=== PATIENT | female | born 1950 | race Caucasian/White ===

== ENCOUNTER → 2024-02-09 10:52 | Outpatient (BNVA) | payer MEDICARE, SELFPAY | PROVIDERS: Visit Provider Nurse Practitioner Family | DX: L21.8 Other seborrheic dermatitis (principal); L98.1 Factitial dermatitis; T22.131A Burn of first degree of right upper arm, initial encounter; X58.XXXA Exposure to other specified factors, initial encounter; Z85.828 Personal history of other malignant neoplasm of skin | CPT/HCPCS: 99214 ==

== ENCOUNTER → 2024-05-29 09:06 | Outpatient (BNVA) | payer MEDICARE, SELFPAY | PROVIDERS: Visit Provider Nurse Practitioner Family | DX: L21.8 Other seborrheic dermatitis (principal); L98.1 Factitial dermatitis; D69.2 Other nonthrombocytopenic purpura; L82.1 Other seborrheic keratosis; L73.8 Other specified follicular disorders; Z08 Encounter for follow-up examination after completed treatment for malignant neoplasm; Z85.828 Personal history of other malignant neoplasm of skin; L57.0 Actinic keratosis | CPT/HCPCS: 17000; 99213 ==

== ENCOUNTER → 2025-01-03 13:27 | Outpatient (BNVA) | payer MEDICARE, SELFPAY | PROVIDERS: Visit Provider Nurse Practitioner Family | DX: L21.8 Other seborrheic dermatitis (principal); L98.1 Factitial dermatitis; D69.2 Other nonthrombocytopenic purpura; L82.1 Other seborrheic keratosis; L73.8 Other specified follicular disorders; Z08 Encounter for follow-up examination after completed treatment for malignant neoplasm; Z85.828 Personal history of other malignant neoplasm of skin; L57.0 Actinic keratosis | CPT/HCPCS: 17000; 99214 ==

== ENCOUNTER 2025-02-04 08:46 | Emergency (ER) | payer MEDICARE, SELFPAY ==
[2025-02-04 08:53] VITALS: BP 142/86; PULSE 66; RESP 16; TEMP 36.6; O2SAT 98; BMI 32.6
--- OUTSIDE RECORDS SUMMARY | 2025-02-04 08:55 | XMS_ITS | Encounter Summary ---
Author Organization [facility] Address [address] [place] [address] Care Team Providers Care Decommissioning Well Site Manager Name Role Phone Jackson Mora DO Primary Care Provider [phone] Reason for Visit * Reason Onset Date Comments Natacha Registered Nurse Surgical Services 02/04/2025 Encounter Details Date Type Department Care Team (Late st Contact Info) Description 02/04/2025 Nurse Triage [facility] [address] [place] [address] Wendy Metz RN Social History Tobacco Use Types Packs/Day Years Used Date Smoking Tobacco: Former Cigarettes Passive Smoke Exposure: Past Smokeless Tobacco: Never Alcohol Use Standard Drinks/Week Comments Not Currently 0 (1 standard drink = 0.6 oz pur e alcohol) Comments No Sex and Gender Information Value Date Recorded Sex Assigned at Not on file Legal Sex Female 6:34 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 She has a history of allergy to bee stings, with previous reactions including localized swelling and discoloration lasting about one week. At present, she denies shortness of breath and swelling of lips, tongue,or throat. Pt states area in now red and slightly swollen. She is inquiring whether she should go to the emergency department for treatment. Pt does not have Zyrtec on hand. Plan: Dr. Aguilar consulted, UC advised. Pt agreeable with plan Note routed to primary care office pool. Visit was completed by phone unless otherwise noted with video/screen capture within the note. Wendy Metz RN [facility] documented in this encounter Plan of Treatment Upcoming Encounters Date Type Department Care Team (Late st Contact Info) Description 03/28/2025 9:40 AM CDT Office Visit [facility] [address] [place] [phone] Danita Vides, LAB ENGINEER [address] [place] [phone] documented as of this encounter Visit Diagnoses Not on filedocumented in this encounter Care Teams Decommissioning Well Site Manager Relationship Specialty Start Date End Date Jackson Mora DO [address] [place] [phone] PCP - General Family Practice 12/15/21 documented as of this encounter
--- OUTSIDE RECORDS SUMMARY | 2025-02-04 08:55 | XMS_ITS | Encounter Summary ---
Author Organization [facility] Address [address] [place] [address] Care Team Providers Care Lumber Puller Name Role Phone Unavailable Primary Care Provider Unavailabl e Encounter Details Date Type Department Care Team (Latest Contact Info) Description 04/21/1998 Outpatient Historical [facility] Family Medicine- [address] [address] Willy Soto MD [address] [address] Cellulitis and abscess of leg, except foot (Primary Dx); Attention to dressings and sutures Social History Tobacco Use Types Packs/Day Years Used Date Smoking Tobacco: Never Assessed Comments Unknown Sex and Gender Information Value Date Recorded Sex Assigned at Not on file Legal Sex Female 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
--- OUTSIDE RECORDS SUMMARY | 2025-02-04 08:55 | XMS_ITS | Encounter Summary ---
Author Organization [facility] Address [address] [place] [address] Care Team Providers Care Supply Chain Vice President Name Role Phone Unavailable Primary Care Provider Unavailabl e Encounter Details Date Type Department Care Team (Latest Contact Info) Description 06/25/1999 Outpatient Historical [facility] Family Medicine- [address] [address] Fortino Mora MD [address] [place] [address] Swelling, mass, or lump in head and neck (Primary Dx) Social History Tobacco Use Types Packs/Day Years Used Date Smoking Tobacco: Never Assessed Comments Unknown Sex and Gender Information Value Date Recorded Sex Assigned at Not on file Legal Sex Female 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
--- OUTSIDE RECORDS SUMMARY | 2025-02-04 08:55 | XMS_ITS | Encounter Summary ---
Author Organization [facility] Address [address] [place] [address] Care Team Providers Care Senior Fire Protection Engineer Name Role Phone Unavailable Primary Care Provider Unavailabl e Encounter Details Date Type Department Care Team (Latest Contact Info) Description 05/09/1998 Outpatient Historical [facility] Family Medicine- [address] [address] Willy Soto MD [address] [address] Lipoma of unspecified site (Primary Dx); Sebaceous cyst Social History Tobacco Use Types Packs/Day Years Used Date Smoking Tobacco: Never Assessed Comments Unknown Sex and Gender Information Value Date Recorded Sex Assigned at Not on file Legal Sex Female 3:56 AM CHIEF OF SERVICE Gender Identity Not on file Sexual Orientation Not on file documented as of this encounter Plan of Treatment Not on file documented as of this encounter Visit Diagnoses Diagnosis Lipoma of unspecified site- Primary Sebaceous cyst documented in this encounter
--- OUTSIDE RECORDS SUMMARY | 2025-02-04 08:55 | XMS_ITS | Encounter Summary ---
Author Organization [facility] Address [address] [place] [address] Care Team Providers Care Hand Trimmer Name Role Phone Unavailable Primary Care Provider Unavailabl e Encounter Details Date Type Department Care Team (Latest Contact Info) Description 03/31/2001 Outpatient Historical [facility] Family Medicine- [address] [address] Willy Soto MD [address] [address] Need vaccination-viral disease (Primary Dx) Social History Tobacco Use Types Packs/Day Years Used Date Smoking Tobacco: Never Assessed Comments Unknown Sex and Gender Information Value Date Recorded Sex Assigned at Not on file Legal Sex Female 3:56 AM CUSTOMER FACILITIES SUPERVISOR Gender Identity Not on file Sexual Orientation Not on file documented as of this encounter Plan of Treatment Not on file documented as of this encounter Visit Diagnoses Diagnosis Need vaccination-viral disease- Primary Need for prophylactic vaccination and inoculation against other viral diseases documented in this encounter
--- OUTSIDE RECORDS SUMMARY | 2025-02-04 08:55 | XMS_ITS | Encounter Summary ---
Author Organization [facility] Address [address] [place] [address] Care Team Providers Care Director Of Online Education Name Role Phone Unavailable Primary Care Provider Unavailabl e Encounter Details Date Type Department Care Team (Latest Contact Info) Description 06/28/2000 Outpatient Historical [facility] Medicine- [address] [address] Fortino Mora MD [address] [place] [address] Type II or unspecified type diabetes mellitus without mention of complication, not stated as uncontrolled (Primary Dx); Pure hypercholesterolem; Unspecified endocrine disorder Social History Tobacco Use Types Packs/Day Years Used Date Smoking Tobacco: Never Assessed Comments Unknown Sex and Gender Information Value Date Recorded Sex Assigned at Not on file Legal Sex Female 3:56 AM GLASS BULB SILVERER Gender Identity Not on file Sexual Orientation Not on file documented as of this encounter Plan of Treatment Not on file documented as of this encounter Visit Diagnoses Diagnosis Type II or unspecified type diabetes mellitus without mention of complication, not stated as uncontrolled- Primary Pure hypercholesterolem Pure hypercholesterolemia Unspecified endocrine disorder documented in this encounter
--- OUTSIDE RECORDS SUMMARY | 2025-02-04 08:55 | XMS_ITS | Encounter Summary ---
Author Organization [facility] Address [address] [place] [address] Care Team Providers Care Professional Fighter Name Role Phone Unavailable Primary Care Provider Unavailabl e Encounter Details Date Type Department Care Team (Latest Contact Info) Description 10/02/1999 Outpatient Historical [facility] Family Medicine- [address] [address] Willy Soto MD [address] [address] Gynecologic examination (Primary Dx); Urinary tract infection, site not specified Social History Tobacco Use Types Packs/Day Years Used Date Smoking Tobacco: Never Assessed Comments Unknown Sex and Gender Information Value Date Recorded Sex Assigned at Not on file Legal Sex Female 3:56 AM PHARMACIST CRITICAL CARE Gender Identity Not on file Sexual Orientation Not on file documented as of this encounter Plan of Treatment Not on file documented as of this encounter Visit Diagnoses Diagnosis Gynecologic examination- Primary Gynecological examination Urinary tract infection, site not specified documented in this encounter
--- OUTSIDE RECORDS SUMMARY | 2025-02-04 08:55 | XMS_ITS | Encounter Summary ---
Author Organization [facility] Address [address] [place] [address] Care Team Providers Care Engine Assembly Supervisor Name Role Phone Unavailable Primary Care Provider Unavailabl e Encounter Details Date Type Department Care Team (Late st Contact Info) Description 04/16/1998 Outpatient Historical [facility] Medicine- [address] [address] Social History Tobacco Use Types Packs/Day Years Used Date Smoking Tobacco: Never Assessed Comments Unknown Sex and Gender Information Value Date Recorded Sex Assigned at Not on file Legal Sex Female 3:56 AM MANGANESE BREAKER Gender Identity Not on file Sexual Orientation Not on file documented as of this encounter Plan of Treatment Not on file documented as of this encounter Visit Diagnoses Not on filedocumented in this encounter
--- OUTSIDE RECORDS SUMMARY | 2025-02-04 08:55 | XMS_ITS | Encounter Summary ---
Author Organization [facility] Address [address] [place] [address] Care Team Providers Care Pickle Cutter Name Role Phone Unavailable Primary Care Provider Unavailabl e Encounter Details Date Type Department Care Team (Latest Contact Info) Description 06/06/1998 Outpatient Historical [facility] Family Medicine- [address] [address] Willy Soto MD [address] [address] Attention to dressings and sutures (Primary Dx); Type II or unspecified type diabetes mellitus without mention of complication, not stated as uncontrolled Social History Tobacco Use Types Packs/Day Years Used Date Smoking Tobacco: Never Assessed Comments Unknown Sex and Gender Information Value Date Recorded Sex Assigned at Not on file Legal Sex Female 3:56 AM HOME ENERGY CONSULTANT SUPERVISOR Gender Identity Not on file Sexual Orientation Not on file documented as of this encounter Plan of Treatment Not on file documented as of this encounter Visit Diagnoses Diagnosis Attention to dressings and sutures- Primary Type II or unspecified type diabetes mellitus without mention of complication, not stated as uncontrolled documented in this encounter
--- OUTSIDE RECORDS SUMMARY | 2025-02-04 08:55 | XMS_ITS | Clinical Summary ---
Author Organization [facility] Address [address] [address] Care Team Providers Care Chief Of Staff Name Role Phone Jackson Mora DO Primary Care Provider [phone] Allergies Active Allergy Reactions Criticality Noted Date Comments Cefazolin Unknown 12/15/2021 Codeine Itching Low 11/04/2022 Metformin Nausea and Vomiting Low 12/15/2021 Peanut Muscle Pain Low 12/15/2021 Zoledronic Dqzu-Hbpjwmnm-Xyvrz Other (See Comments) 12/15/2021 unknown Medications Farxiga 10 mg Tablet Take 10 mg by mouth daily. 12/02/19 22 Active furosemide (LASIX) 20 mg tablet Take 20 mg by mouth daily. 09/16/19 22 Active isosorbide mononitrate (IMDUR) 60 mg Extended Release 24 hour tablet Take 60 mg by mouth daily in the morning. 12/01/19 22 Active metoprolol tartrate (LOPRESSOR) 25 mg tablet Take 25 mg by mouth 2 times daily. 12/05/19 22 Active simvastatin (ZOCOR) 10 mg tablet Take 10 mg by mouth daily. 12/05/19 22 Active Januvia 100 mg Tablet Take 100 mg by mouth daily. 12/12/19 22 Active ferrous sulfate 325 mg (65 mg iron) tablet Take 325 mg by mouth daily. Active CHOLECALCIFEROL, VITAMIN D3, ORAL Take 1,000 Int'l Units/kg/min by mouth. Active omega 8-san-dmu-fish oil 1,000 mg (120 mg-180 mg) capsule Take by mouth daily. Active montelukast (SINGULAIR) 10 mg tablet Take 1 Tablet (10 mg) by mouth daily at bedtime. 90 Tablet 3 09/21/19 23 Active mupirocin (BACTROBAN) 2% Ointment Apply to affected area daily. 30 Gram 1 11/05/19 23 Active omeprazole (PriLOSEC) 20 mg Capsule, Delayed Release(E.C.) Take 1 Capsule by mouth daily. 08/25/19 24 Active Eliquis 5 mg tablet Take 1 Tablet by mouth 2 times daily. 08/22/19 24 Active naproxen sodium (ALEVE) 220 mg Tablet Take 220 mg by mouth every 12 hours as needed for Pain, Moderate. Active clobetasoL (TEMOVATE) 0.05 % Solution by See Admin Instructions route. 08/23/19 25 Active dilTIAZem (CARDIZEM CD, CARTIA XT) 180 mg Controlled Delivery 24 hour capsule Take 1 Capsule by mouth daily. 07/04/19 25 Active ketoconazole (NIZORAL) 2 % Shampoo Apply to affected area daily. 08/03/19 25 Active nitroglycerin (NITROSTAT) 0.4 mg Tablet, Sublingual Place 0.4 mg under tongue every 5 minutes as needed. 09/14/19 25 Active DULoxetine (CYMBALTA) 60 mg Capsule, Delayed Release(E.C.)Ind ications:Chronic bilateral thoracic back pain Take 1 capsule by mouth once daily 90 Capsule 1 10/02/19 25 Active OneTouch Verio test strips StripIndications :Type 2 diabetes mellitus without complication, without long-term current use of insulin ([facility]) USE 1 STRIP TO CHECK GLUCOSE TWICE DAILY 100 Each 3 11/29/19 25 Active dofetilide (TIKOSYN) 500 mcg capsule Take 1 Capsule by mouth 2 times daily. 12/09/19 25 Active potassium CHLORIDE (K-DUR,KLOR-CON M20) 20 mEq Extended Release tablet Take 1 Tablet by mouth 2 times daily. 10/03/19 25 Active alendronate (FOSAMAX) 70 mg tabletIndication s:Age-related osteoporosis without current pathological fracture Take 1 Tablet (70 mg) by mouth every 7 days. empty stomach before other meds,with 8oz of water, stay upright 30 min 4 Tablet 1 02/01/20 25 Active alendronate (FOSAMAX) 70 mg tablet TAKE 1 TABLET BY MOUTH EVERY 7 DAYS ON AN EMPTY STOMACH BEFORE OTHER MEDS WITH 8 OUNCES OF WATER. STAY UPRIGHT FOR 30 MINUTES 4 Tablet 1 12/12/19 25 025 Discontin ued(Reord er) Active Problems Problem Noted Date Diagnosed Date H/O peanut allergy 12/02/2023 Hx of nonmelanoma skin cancer 12/02/2023 Status post placement of cardiac pacemaker 12/01 Type 2 diabetes mellitus wit hojuan m complication, without long-term current use of insulin 09/02/2023 Age-related cognitive decline 04/18/2023 Obesity (BMI 30.0-34.9) 11/05/2022 Sick sinus syndrome 11/04/2022 Right bundle branch block 11/04/2022 Primary hypertension 11/04/2022 Primary hyperparathyroidism 11/04/2022 Presence of cardiac pacemaker 11/04/2022 Orthostatic hypotension 11/04/2022 Obesity 11/04/2022 Multinodular goiter 11/04/2022 Mixed hyperlipidemia 11/04/2022 Dyspnea on exertion 11/04/2022 Deformity of foot 11/04/2022 Complete atrioventricular block 11/04/2022 Chronic insomnia 11/04/2022 Chronic cough 11/04/2022 Chronic pain of left knee 11/04/2022 Hx of gastric bypass 11/04/2022 Arthritis 11/04/2022 S/P patch closure of atrial septal defect 2022 Age-related osteoporosis wit hout current pathological fracture 12/15/2021 Kyphosis 12/15/2021 Onychomycosis of multiple to enails with type 2 diabetes mellitus 12/15/2021 Chronic bilateral thoracic back pain 12/15/2021 Chronic systolic congestive heart failure 2021 S/P placement of cardiac pacemaker 12/15/2021 Gastroesophageal reflux disease 12/15/2021 Encounters Date Type Department Care Team Description 02/04/2025 Nurse Triage [facility] [phone] [place] [id number] Wendy Metz, LAURI 01/31/2025 Refill [facility] [address] [address] Jackson Mora DO Age-related osteoporosis without current pathological fracture (Primary Dx) 01/20/2025 Results Follow-Up [facility] [address] [place] [address] Jackson Mora DO XR CHEST PA AND LATERAL 2 VW 01/11/2025 9:30 AM CDT Clinical Support [address] [address] Acute cough (Primary Dx) 01/11/2025 9:00 AM CDT Ancillary Procedure [address] [address] Jackson Mora DO Acute cough 01/08/2025 External Device Data STL ABSTRACTION Provider, Abstract 01/02/2025 External Device Data STL ABSTRACTION Provider, Abstract 01/01/2025 External Device Data [facility] ABSTRACTION Provider, Abstract 12/27/2024 1:40 PM CDT Office Visit [address] [address] Jackson Mora DO Chronic systolic congestive heart failure (CMS/HCC) (Primary Dx); Frail elderly; Complete atrioventricular block (CMS/HCC); Sick sinus syndrome (CMS/HCC); Type 2 diabetes mellitus without complication, without long-term current use of insulin (CMS/HCC); Obesity (BMI 30.0-34.9); Age-related osteoporosis without current pathological fracture; Mixed hyperlipidemia; Multinodular goiter; Primary hypertension; Rash; Presence of heart assist device (CMS/HCC) 12/24/2024 10:40 AM CDT Procedure visit [address] [address] 12/11/[address] [address] Jackson Mora DO 12/05/2024 External Device Data STL ABSTRACTION Provider, Abstract 12/05/2024 Orders Only [address] [address] Jackson Mora DO Type 2 diabetes mellitus without complication, without long-term current use of insulin (CMS/HCC) 12/05/2024 External Device Data STL ABSTRACTION Provider, Abstract 12/04/2024 External Device Data STL ABSTRACTION Provider, Abstract 12/01/2024 Results Follow-Up [address] [address] Jackson Mora DO XR DEXA BONE DENSITY AXIAL 1 OR MORE SITES 11/27/2024 1:00 PM CDT Ancillary Procedure [facility] Claudio Gavin [address] [place] [address] Jackson Mora DO 11/27/[address] [address] Jackson Mora, Type 2 diabetes mellitus without complication, without long-term current use of insulin ([facility]) (Primary Dx) 11/11/[address] [address] Jackson Mora DO 11/07/2024 External Device Data STL ABSTRACTION Provider, Abstract 11/07/2024 External Device Data STL ABSTRACTION Provider, Abstract 11/06/2024 External Device Data STL ABSTRACTION Provider, Abstract from Last 3 Months Immunizations Immunization Administration Dates Next Due (PNEUMOVAX 23)(50 YRS UP) PN EUMOCOCCAL POLYSACCHARIDE (PPV23) 0.5 ML, IM 05/04/2000 (PREVNAR 20)(6 WKS UP) PNEUM OCOCCAL CONJUGATE VACCINE 20-VALENT (PCV20), POLYSACCHARIDE [id number] CONJUGATE, ADJUVANT 0.5 ML (PF) IM 08/05/2022 (SHINGRIX)(50 YRS UP) ZOSTER VACCINE RECOMBINANT, 0.5 ML, IM 12/02/2022,07/05/2022 INFLUENZA VACCINE HIGH DOSE QUADRIVALENT 65 YR UP PF IM 03/09/2023,03/29/2016 INFLUENZA VACCINE QUADRIVALE NT ADJ 65 YR UP PF IM 03/20/2022 Influenza Seasonal Unspecifi ed Formulation IM 03/13/2021,04/10/2020,03/31/2001,05/04 Zoster Vaccine Live SQ 12/02/2022 Family History Medical History Relation Name Comments Heart Disease Father Hypertension Father Uterine or Endometrial Cancer, Not Including Cervical Mother Melanoma Other Self Breast Cancer Neg Hx Ovarian Cancer Neg Hx Pancreatic Cancer Neg Hx Relation Name Status Comments Father Mother Other Self Social History Tobacco Use Types Packs/Day Years Used Date Smoking Tobacco: Former Cigarettes Passive Smoke Exposure: Past Smokeless Tobacco: Never Tobacco Cessation:Counseling Given: No Alcohol Use Standard Drinks/Week Comments Not Currently 0 (1 standard drink = 0.6 oz pur e alcohol) Comments No Sex and Gender Information Value Date Recorded Sex Assigned at Not on file Legal Sex Female 6:34 AM WAFER MOUNTER Gender Identity Not on file Sexual Orientation Not on file Last Filed Vital Signs Vital Sign Reading Time Taken Comments Blood Pressure 124/76 12/27/2024 1:14 PM CDT Pulse 60 12/27/2024 1:14 PM CDT Temperature 36.4 C (97.5 F) 12/27/2024 1:14 PM CDT Respiratory Rate 18 12/27/2024 1:14 PM CDT Oxygen Saturation 100% 12/27/2024 1:14 PM CDT Room Air Inhaled Oxygen Concentration - - Weight 79.8 kg (176 lb) 12/27/2024 1:14 PM CDT Height 154.9 cm (5' 1 ) 12/27/2024 1:14 PM CDT Body Mass Index 33.25 12/27/2024 1:14 PM CDT Plan of Treatment Upcoming Encounters Date Type Department Care Team (Late st Contact Info) Description 03/28/2025 9:40 AM CDT Office Visit [facility] [place] [address] [place] [phone] Danita Vides, ACCORDION TUNER [address] [place] [phone] Health Maintenance Due Date Last Done Comments DTAP/TDAP/TD VACCINES (1 - Tdap) 1969 LDL CHOLESTEROL ANNUAL 01/25/2023 01/25/2022 RSV VACCINE (60+ or ) (1 - 1-dose 75+ series) 2023 COVID-19 Vaccine (2023-2 5 season) 2024 05/16/2021, 09/12/2020, 08/15/2020 DIABETES ANNUAL FOOT EXAM 06/01/2024 06/01/2023, 08/2021 KHE eGFR (Auto Order) 06/20/2024 12/02/2023 , 12/02/2023, 12/08/2022, Additional history exists KHE uACR (Auto Order) 06/20/2024 12/02/2023 , 06/01/2023, 01/25/2022 Medicare Advantage (IA) Preventative Visit/Annual Wellness Visit 06/20/2024 11/04/2022, 11/04/2022, 08/05/2022 DIABETES MICROALBUMIN ANNUAL SCREEN 12/01/2024 12/02/2023, 06/01/2023, 01/25/2022 INFLUENZA VACCINE (#1) 2025 , 03/09/2023, 03/20/2022, Additional history exists DIABETES HBA1C Q 6 MONTHS 06/26/20252024, 08/13/2024, 07/05/2023, Additional history exists DIABETES ANNUAL RETINAL EXAM 12/05/2025, 12/07/2023, 12/07/2023, Additional history exists DIABETES: A1C (Auto Order) 12/24/202512/24, 08/13/2024, 07/05/2023, Additional history exists OSTEOPOROSIS SCREENING 11/27/2029 , 11/16/2022, 11/16/2022 Colorectal Cancer Screening Discontinued FIT-DNA Q 3 years Discontinued 04/29/2022 PNEUMOCOCCAL VACCINE 50+ YEARS Completed 08/05/2022 , 05/04/2000 ZOSTER VACCINE Completed 12/02/2022, 11/18, 07/05/2022 COLORECTAL SCREENING Discontinued FIT/FOBT Q 1 year Discontinued Flex Sig/CT Colonography Q 5 years Discontinued Procedures Procedure Name Priority Date/Time Associated Diagnosis Comments POC COVID-19 AND INFLUENZA A/B PCR Routine 01/11/2025 9:39 AM CDT Acute cough XR CHEST PA AND LATERAL 2 VW Routine 01/11/2025 8:59 AM CDT Acute cough HEMOGLOBIN A1C Routine 12/24/2024 8:48 AM CDT Type 2 diabetes mellitus without complication, without long-term current use of insulin ([facility]/HCC) HM DIABETES EYE EXAM Routine 12/05/2024 4:39 PM CDT XR DEXA BONE DENSITY AXIAL 1 OR MORE SITES Routine 11/27/2024 12:51 PM CDT Age-related osteoporosis without current pathological fracture COMPREHENSIVE METABOLIC PANEL Routine 12/02/2023 11:41 AM CDT Type 2 diabetes mellitus without complication, without long-term current use of insulin ([facility]/HCC) MICROALBUMIN/CREATINI NE RATIO, RANDOM UR Routine 12/02/2023 11:00 AM CDT Type 2 diabetes mellitus without complication, without long-term current use of insulin ([facility]) COLON CANCER SCREEN, STOOL DNA Routine 04/29/2022 2:30 PM WAFER MOUNTER Encounter for colorectal cancer screening LIPID PANEL Routine 01/25/2022 from Last 3 Months or Most Recently Relevant to Health Maintenance Results * POC COVID-19 AND INFLUENZA A/B PCR (01/11/2025 9:39 AM CDT) COVID-19 PCR POC Not Detected Not Detected [facility] INFLUENZA A BY PCR POC Negative/Not Detected Negative/Not Detected [facility] INFLUENZA B BY PCR POC Negative/Not Detected Negative/Not Detected [facility] INTERNAL KIT QC POC Pass Pass [facility] KIT LOT NUMBER POC [id number] [facility] KIT EXP DATE POC 2025-02-01 [facility] 01/11/2025 9:39 AM CDT Jackson Mora DO POINT OF CARE TESTING Final R esult [facility] CLIA# [id number] [address] [place] [address] * XR CHEST PA AND LATERAL 2 VW (01/11/2025 8:59 AM CDT) Anatomical Region Laterality Modality Chest Computed Radiogr aphy 01/11/2025 8:59 AM CDT Impressions 01/11/2025 9:27 AM CDT Impression: The cardiac silhouette appears enlarged. No pulmonary consolidation, pleural effusion or pneumothorax is identified. The osseous structures appear grossly intact. Left chest dual-chamber pacemaker and sternotomy wires. Narrative 01/11/2025 9:27 AM CDT Exam: XR CHEST PA AND LATERAL 2 VW Date/Time of Exam: 01/11/2025 8:59 AM Reason For Exam: See Diagnosis. Diagnosis: Acute cough. Comparison: None. Procedure Note Julio Castano MD - 01/11/2025 Exam: XR CHEST PA AND LATERAL 2 VW Date/Time of Exam: 01/11/2025 8:59 AM Reason For Exam: See Diagnosis. Diagnosis: Acute cough. Comparison: None. Impression: The cardiac silhouette appears enlarged. No pulmonary consolidation, pleural effusion or pneumothorax is identified. The osseous structures appear grossly intact. Left chest dual-chamber pacemaker and sternotomy wires. Jackson Mora DO DIAGNOSTIC IMAGING ORDERABLES Final Result * (ABNORMAL) HEMOGLOBIN A1C (12/24/2024 8:48 AM CDT) HEMOGLOBIN A1C 7.8(H) <5.7 % [facility] Comment: For someone without known diabetes, a hemoglobin A1c value of 6.5% or greater indicates that they may have diabetes and this should be confirmed with a follow-up test. For someone with known diabetes, a value <7% indicates that their diabetes is well controlled and a value greater than or equal to 7% indicates suboptimal control. A1c targets should be individualized based on duration of diabetes, age, comorbid conditions, and other considerations. Currently, no consensus exists regarding use of hemoglobin A1c for diagnosis of diabetes for children. ESTIMATED AVERAGE GLUCOSE (MG/DL) 177 mg/dL [facility] ESTIMATED AVERAGE GLUCOSE (MMOL/L) 9.8 mmol/L [facility] Comment: FASTING:YES FASTING: YES Test Performed at: [facility] [address] [place] [address] Lisandro Hammond MD Blood 12/24/2024 8:48 AM CDT 12/24/2024 8:52 AM CDT us Jackson Mora DO CHEMISTRY ORDERABLES Final Re sult Performing Organization Address City/[facility]/ZIP Co de Phone Number [facility] [phone] [facility] [address] [facility] [place] [address] * HM DIABETES EYE EXAM (12/05/2024 4:39 PM CDT) Slava Garcia OD HEALTH MAINTENANCE Final Resu lt Performing Organization Address City/[facility]/ZIP Co de Phone Number [facility]# [id number] [address] [place] [phone] * XR DEXA BONE DENSITY AXIAL 1 OR MORE SITES (11/27/2024 12:51 PM CDT) Anatomical Region Laterality Modality Nuclear Medicine 11/27/2024 12:5 1 PM CDT Impressions 11/27/2024 1:18 PM CDT IMPRESSION: Bone mineral density values fall within the osteoporotic range as above. NOF guidelines recommend consideration of FDA-approved medical therapies in patients with FRAX determined 10-year probabilities of hip/major osteoporosis-related fractures equal or greater than 3%/20% respectively. Consider assessing fracture risk using the FRAX analysis tool for guidance of clinical management available online at www.shef.ac.uk/FRAX/. Enter Rounds for Select DXA and the Femoral Neck BMD value. Narrative 11/27/2024 1:18 PM CDT DEXA Evaluation of the Lumbar Spine and Left Proximal Femur Reason For Exam: See Diagnosis. Evaluation of bone mineral density. Diagnosis: Age-related osteoporosis without current pathological fracture. The following absorptiometry data were obtained. The quality of this examination is acceptable with regards to count density, processed images, data display and lack of important artifacts (including but not limited to motion and attenuation artifacts). Serial examination number 1. L2-L3 BMD (g/cm2): 0.843 Adult T-score: -3 LEFT FEMORAL NECK BMD (g/cm2): 0.63 Adult T-score: -3 LEFT TOTAL HIP BMD (g/cm2): 0.636 Adult T-score: -3 Procedure Note Johnny Kidd MD - 11/27/2024 DEXA Evaluation of the Lumbar Spine and Left Proximal Femur Reason For Exam: See Diagnosis. Evaluation of bone mineral density. Diagnosis: Age-related osteoporosis without current pathological fracture. The following absorptiometry data were obtained. The quality of this examination is acceptable with regards to count density, processed images, data display and lack of important artifacts (including but not limited to motion and attenuation artifacts). Serial examination number 1. L2-L3 BMD (g/cm2): 0.843 Adult T-score: -3 LEFT FEMORAL NECK BMD (g/cm2): 0.63 Adult T-score: -3 LEFT TOTAL HIP BMD (g/cm2): 0.636 Adult T-score: -3 IMPRESSION: Bone mineral density values fall within the osteoporotic range as above. NOF guidelines recommend consideration of FDA-approved medical therapies in patients with FRAX determined 10-year probabilities of hip/major osteoporosis-related fractures equal or greater than 3%/20% respectively. Consider assessing fracture risk using the FRAX analysis tool for guidance of clinical management available online at www.shef.ac.uk/FRAX/. Enter Rounds for Select DXA and the Femoral Neck BMD value. Jackson Mora DO DIAGNOSTIC IMAGING ORDERABLES Final Result * (ABNORMAL) COMPREHENSIVE METABOLIC PANEL (12/02/2023 11:41 AM CDT) [facility] GLUCOSE 125(H) 65 - 99 mg/dL [facility] Comment: Fasting reference interval For someone without known diabetes, a glucose value between 100 and 125 mg/dL is consistent with prediabetes and should be confirmed with a follow-up test. BUN 19 7 - 25 mg/dL [facility] CREATININE 0.99 0.60 - 1.00 mg/dL [facility] GFR 59(L) > OR = 60 mL/min/1. 73m2 [facility] BUN/CREAT RATIO SEE NOTE: 6 - 22 (calc) [facility] Comment: Not Reported: BUN and Creatinine are within reference range. SODIUM 142 135 - 146 mmol/L [facility] POTASSIUM 4.3 3.5 - 5.3 mmol/L [facility] CHLORIDE 106 98 - 110 mmol/L [facility] CO2 26 20 - 32 mmol/L [facility] CALCIUM 9.7 8.6 - 10.4 mg/dL [facility] TOTAL PROTEIN 6.6 6.1 - 8.1 g/dL [facility] ALBUMIN 4.4 3.6 - 5.1 g/dL [facility] GLOBULIN 2.2 1.9 - 3.7 g/dL (calc) [facility] ALBUMIN/GLOBULIN RATIO 2.0 1.0 - 2.5 (calc) [facility] BILIRUBIN TOTAL 0.8 0.2 - 1.2 mg/dL [facility] ALKALINE PHOSPHATASE 52 37 - 153 U/L [facility] AST 21 10 - 35 U/L [facility] ALT 15 6 - 29 U/L [facility] Comment: Test Performed at: [facility] [id number] [facility] [place] [address] Lisandro Hammond MD Blood 12/02/2023 11:4 1 AM CDT 12/03/2023 3:36 AM CDT Jackson Mora DO CHEMISTRY ORDERABLES Final Re sult [facility] [phone] [facility] [address] [facility] [place] [address] * MICROALBUMIN/CREATININE RATIO, RANDOM UR (12/02/2023 11:00 AM CDT) Creatinine, Urine 43 20 - 275 mg/dL [facility] MICROALBUMIN, URINE 0.2 See Note: mg/dL [facility] Comment: Reference Range: Reference Range Not established MICROALBUMIN/CREAT RATIO, UR 5 <30 mg/g creat [facility] Comment: The ADA defines abnormalities in albumin excretion as follows: Albuminuria Category Result (mg/g creatinine) Normal to Mildly increased <30 Moderately increased 30-299 Severely increased > OR = 300 The ADA recommends that at least two of three specimens collected within a 3-6 month period be abnormal before considering a patient to be within a diagnostic category. Test Performed at: [facility] [id number] [place] [address] Lisandro Hammond MD Urine URINE SPECIMEN OBTAINED BY CLEAN CATCH PROCEDURE / Unknown 12/02/2023 11:00 AM CDT 12/03/2023 2:58 AM CDT Jackson Abby URINE ORDERABLES Final Result [facility] [phone] [place] [address] [place] [address] * COLON CANCER SCREEN, STOOL DNA (04/29/2022 2:30 PM WAFER MOUNTER) Pathologist [facility] COLOGUARD RESULT Negative Negative [facility] Comment: NEGATIVE TEST RESULT. A negative Cologuard result indicates a low likelihood that a colorectal cancer (CRC) or advanced adenoma (adenomatous polyps with more advanced pre-malignant features) is present. The chance that a person with a negative Cologuard test has a colorectal cancer is less than 1 in 1500 (negative predictive value >99.9%) or has an advanced adenoma is less than 5.3% (negative predictive value 94.7%). These data are based on a prospective cross-sectional study of 10,000 individuals at average risk for colorectal cancer who were screened with both Cologuard and colonoscopy. (Darin Luna et al, N Engl J Med 2014;370(14):8360-3856) The normal value (reference range) for this assay is negative. COLOGUARD RE-SCREENING RECOMMENDATION: Periodic colorectal cancer screening is an important part of preventive healthcare for asymptomatic individuals at average risk for colorectal cancer. Following a negative Cologuard result, the [place] [employer] and U.S. Multi-Society Task Force screening guidelines recommend a Cologuard re-screening interval of 3 years. References: [place] [employer] Guideline for Colorectal Cancer Screening: https://www.cancer.org/cancer/jrsfb-fksmci-algwut/bbsrsakvp-ogzfalpuu-gjxptuq/ac s-rec ommendations.html.; Mart DK, Franklyn NAILS, Camilo PendletonK, Colorectal Cancer Screening: Recommendations for Physicians and Patients from the U.S. Multi-Society Task Force on Colorectal Cancer Screening , Am J Gastroenterology 2017; 112:2581-4939. TEST DESCRIPTION: Composite algorithmic analysis of stool DNA-biomarkers with hemoglobin immunoassay. Quantitative values of individual biomarkers are not reportable and are not associated with individual biomarker result reference ranges. Cologuard is intended for colorectal cancer screening of adults of either sex, 45 years or older, who are at average-risk for colorectal cancer (CRC). Cologuard has been approved for use by the U.S. FDA. The performance of Cologuard was established in a cross sectional study of average-risk adults aged 50-84. Cologuard performance in patients ages 45 to 49 years was estimated by sub-group analysis of near-age groups. Colonoscopies performed for a positive result may find as the most clinically significant lesion: colorectal cancer [4.0%], advanced adenoma (including sessile serrated polyps greater than or equal to 1cm diameter) [20%] or non- advanced adenoma [31%]; or no colorectal neoplasia [45%]. These estimates are derived from a prospective cross-sectional screening study of 10,000 individuals at average risk for colorectal cancer who were screened with both Cologuard and colonoscopy. (Darin Jurado al, N Engl J Med 2014;370(14):6383-4768.) Cologuard may produce a false negative or false positive result (no colorectal cancer or precancerous polyp present at colonoscopy follow up). A negative Cologuard test result does not guarantee the absence of CRC or advanced adenoma (pre-cancer). The current Cologuard screening interval is every 3 years. ([place] [employer] and [place] Multi-Society Task Force). Cologuard performance data in a 10,000 patient pivotal study using colonoscopy as the reference method can be accessed at the following location: www.InviBox/results. Additional description of the Cologuard test process, warnings and precautions can be found at [email or web address]. Stool STOOL SPECIMEN / Unknown 04/29/2022 2:30 PM WAFER MOUNTER 05/01/2022 5:33 PM WAFER MOUNTER Jackson Mora DO BODY FLUIDS AND STOOLS Final Result [employer] CLIA # [id number] [address] [facility], [address] [place] [address] * LIPID PANEL (01/25/2022) ABSTRACTED CHOLESTEROL 164 ABSTRACTED TRIGLYCERIDE 131 ABSTRACTED HDL 60 ABSTRACTED LDL CALCULATED 78 Blood 01/25/2022 us Abstract Provider CHEMISTRY ORDERABLES Final Res ult from Last 3 Months or Most Recently Relevant to Health Maintenance Insurance [facility] MEDICARE HMO Care Teams Chief Of Staff Relationship Specialty Start Date End Date Jackson Mora DO [address] [place] [address] PCP - General Family Practice 12/15/21
--- OUTSIDE RECORDS SUMMARY | 2025-02-04 08:55 | XMS_ITS | Encounter Summary ---
Author Organization [facility] Address [address] [place] [address] Care Team Providers Care Event Sales Representative Name Role Phone Unavailable Primary Care Provider Unavailabl e Encounter Details Date Type Department Care Team (Latest Contact Info) Description 10/08/1999 Outpatient Historical [facility] Medicine- [address] [address] Fortino Mora MD [address] [place] [address] Urinary tract infection, site not specified (Primary Dx); Type II or unspecified type diabetes mellitus without mention of complication, not stated as uncontrolled Social History Tobacco Use Types Packs/Day Years Used Date Smoking Tobacco: Never Assessed Comments Unknown Sex and Gender Information Value Date Recorded Sex Assigned at Not on file 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
--- OUTSIDE RECORDS SUMMARY | 2025-02-04 08:55 | XMS_ITS | Encounter Summary ---
Author Organization [facility] Address [address] [place] [address] Care Team Providers Care Relations Coordinator Name Role Phone Unavailable Primary Care Provider Unavailabl e Encounter Details Date Type Department Care Team (Latest Contact Info) Description 05/02/[address] 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
--- OUTSIDE RECORDS SUMMARY | 2025-02-04 08:55 | XMS_ITS | Encounter Summary ---
Author Organization [facility] Address [address] [place] [address] Care Team Providers Care Improvement Coordinator Name Role Phone Unavailable Primary Care Provider Unavailabl e Encounter Details Date Type Department Care Team (Latest Contact Info) Description 08/18/2001 Outpatient Historical [facility] Medicine- [address] [address] Fortino Mora MD [address] [place] [address] CHRONIC SKIN ULCER NEC (CMS/HCC) (Primary Dx); DIABETES UNCOMPL ADULT-TYPE II (CMS/HCC) Social History Tobacco Use Types Packs/Day Years Used Date Smoking Tobacco: Never Assessed Comments Unknown Sex and Gender Information Value Date Recorded Sex Assigned at Not on file Legal Sex Female 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
--- OUTSIDE RECORDS SUMMARY | 2025-02-04 08:55 | XMS_ITS | Encounter Summary ---
Author Organization [facility] Address [address] [place] [address] Care Team Providers Care Engine Generator Assembler Name Role Phone Unavailable Primary Care Provider Unavailabl e Encounter Details Date Type Department Care Team (Latest Contact Info) Description 06/23/1999 Outpatient Historical [facility] Family Medicine- [address] [address] Willy Soto MD [address] [address] Swelling, mass, or lump in head and neck (Primary Dx); Type II or unspecified type diabetes mellitus without mention of complication, not stated as uncontrolled Social History Tobacco Use Types Packs/Day Years Used Date Smoking Tobacco: Never Assessed Comments Unknown Sex and Gender Information Value Date Recorded Sex Assigned at Not on file Legal Sex Female 3:56 AM JAVA TECH Gender Identity Not on file Sexual Orientation Not on file documented as of this encounter Plan of Treatment Not on file documented as of this encounter Visit Diagnoses Diagnosis Swelling, mass, or lump in head and neck- Primary Type II or unspecified type diabetes mellitus without mention of complication, not stated as uncontrolled documented in this encounter
--- OUTSIDE RECORDS SUMMARY | 2025-02-04 08:55 | XMS_ITS | Encounter Summary ---
Author Organization [facility] Address [address] [place] [address] Care Team Providers Care City Alderman Name Role Phone Unavailable Primary Care Provider Unavailabl e Encounter Details Date Type Department Care Team (Latest Contact Info) Description 2000 Outpatient Historical [facility] Medicine- [address] [address] Fortino Mora MD [address] [place] [address] Type II or unspecified type diabetes mellitus without mention of complication, not stated as uncontrolled (Primary Dx); Unspecified asthma(493.90); Unspecified essential hypertension; Other and unspecified hyperlipidemia Social History Tobacco Use Types Packs/Day Years Used Date Smoking Tobacco: Never Assessed Comments Unknown Sex and Gender Information Value Date Recorded Sex Assigned at Not on file Legal Sex Female 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
--- OUTSIDE RECORDS SUMMARY | 2025-02-04 08:55 | XMS_ITS | Clinical Summary ---
Author Organization [facility] Address [address] [facility] Attn: Epic Prelude ADT [place] [address] Care Team Providers Care Investigator Claims Name Role Phone Unavailable Primary Care Provider Unavailabl e Immunizations Immunization Administration Dates Next Due (PNEUMOVAX 23)(50 YRS UP) PN EUMOCOCCAL POLYSACCHARIDE (PPV23) 0.5 ML, IM 05/04/2000 Influenza Seasonal Unspecified Formulation IM ,05/04/2000 Social History Tobacco Use Types Packs/Day Years Used Date Smoking Tobacco: Never Assessed Comments Unknown Sex and Gender Information Value Date Recorded Sex Assigned at Not on file 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
--- OUTSIDE RECORDS SUMMARY | 2025-02-04 08:55 | XMS_ITS | Encounter Summary ---
Author Organization [facility] Address [address] [place] [address] Care Team Providers Care Unattended Ground Sensor Specialist Name Role Phone Unavailable Primary Care Provider Unavailabl e Encounter Details Date Type Department Care Team (Latest Contact Info) Description 04/23/1998 Outpatient Historical [facility] Family Medicine- [address] [address] Willy Soto MD [address] [address] Cellulitis and abscess of leg, except foot (Primary Dx); Attention to dressings and sutures Social History Tobacco Use Types Packs/Day Years Used Date Smoking Tobacco: Never Assessed Comments Unknown Sex and Gender Information Value Date Recorded Sex Assigned at Not on file 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
--- OUTSIDE RECORDS SUMMARY | 2025-02-04 08:55 | XMS_ITS | Encounter Summary ---
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
--- OUTSIDE RECORDS SUMMARY | 2025-02-04 08:55 | XMS_ITS | Encounter Summary ---
Author Organization [facility] Address [address] [place] [address] Care Team Providers Care Counterintelligence Specialist Name Role Phone Unavailable Primary Care Provider Unavailabl e Encounter Details Date Type Department Care Team (Latest Contact Info) Description 09/26/2001 Outpatient Historical [facility] [place] [address] [phone] Todd Orlando MD [address], [place] [phone] CHEST PAIN NOS (Primary Dx) Social History Tobacco Use Types Packs/Day Years Used Date Smoking Tobacco: Never Assessed Comments Unknown Sex and Gender Information Value Date Recorded Sex Assigned at Not on file Legal Sex Female 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
--- OUTSIDE RECORDS SUMMARY | 2025-02-04 08:55 | XMS_ITS | Encounter Summary ---
Author Organization [facility] Address [address] [place] [address] Care Team Providers Care Qc Lab Technician Name Role Phone Unavailable Primary Care Provider Unavailabl e Encounter Details Date Type Department Care Team (Latest Contact Info) Description 05/20/1998 Outpatient Historical [facility] Family Medicine- [address] [address] Fortino Mora MD [address] [place] [address] Disruption of perineal wound, with delivery, with mention of complication (Primary Dx); Type II or unspecified type diabetes mellitus without mention of complication, not stated as uncontrolled Social History Tobacco Use Types Packs/Day Years Used Date Smoking Tobacco: Never Assessed Comments Unknown Sex and Gender Information Value Date Recorded Sex Assigned at Not on file 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
--- OUTSIDE RECORDS SUMMARY | 2025-02-04 08:55 | XMS_ITS | Encounter Summary ---
Author Organization [facility] Address [address] [place] [address] Care Team Providers Care Set Rider Name Role Phone Unavailable Primary Care Provider Unavailabl e Encounter Details Date Type Department Care Team (Latest Contact Info) Description 05/21/1998 Outpatient Historical [facility] Family Medicine- [address] [address] Willy Soto MD [address] [address] Attention to dressings and sutures (Primary Dx); Type II or unspecified type diabetes mellitus without mention of complication, not stated as uncontrolled Social History Tobacco Use Types Packs/Day Years Used Date Smoking Tobacco: Never Assessed Comments Unknown Sex and Gender Information Value Date Recorded Sex Assigned at Not on file 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
--- OUTSIDE RECORDS SUMMARY | 2025-02-04 08:55 | XMS_ITS | Encounter Summary ---
Author Organization [facility] Address [address] [place] [address] Care Team Providers Care Cell Installer Name Role Phone Unavailable Primary Care Provider Unavailabl e Encounter Details Date Type Department Care Team (Latest Contact Info) Description 08/18/2000 Outpatient Historical [facility] Family Medicine- [address] [address] Fortino Mora MD [address] [place] [address] Degeneration of intervertebral disc, site unspecified (Primary Dx); Type II or unspecified type diabetes mellitus without mention of complication, not stated as uncontrolled; Unspecified essential hypertension; Edema Social History Tobacco Use Types Packs/Day Years Used Date Smoking Tobacco: Never Assessed Comments Unknown Sex and Gender Information Value Date Recorded Sex Assigned at Not on file 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
--- OUTSIDE RECORDS SUMMARY | 2025-02-04 08:55 | XMS_ITS | Encounter Summary ---
Author Organization [facility] Address [address] [place] [address] Care Team Providers Care Elect Equip Maint Eng Name Role Phone Unavailable Primary Care Provider Unavailabl e Encounter Details Date Type Department Care Team (Latest Contact Info) Description 05/04/2000 Outpatient Historical [facility] Family Medicine- [address] [address] Willy Soto MD [address] [address] Need for other specified prophylactic vaccination against single bacterial disease (Primary Dx); Need vaccination-viral disease Social History Tobacco Use Types Packs/Day Years Used Date Smoking Tobacco: Never Assessed Comments Unknown Sex and Gender Information Value Date Recorded Sex Assigned at Not on file Legal Sex Female 3:56 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
--- OUTSIDE RECORDS SUMMARY | 2025-02-04 08:55 | XMS_ITS | Encounter Summary ---
Author Organization [facility] Address [address] [place] [address] Care Team Providers Care Industrial Eng Name Role Phone Unavailable Primary Care Provider Unavailabl e Encounter Details Date Type Department Care Team (Latest Contact Info) Description 09/30/1999 Outpatient Historical [facility] Family Medicine- [address] [address] Willy Soto MD [address] [address] Urinary tract infection, site not specified (Primary Dx); Type II or unspecified type diabetes mellitus without mention of complication, not stated as uncontrolled Social History Tobacco Use Types Packs/Day Years Used Date Smoking Tobacco: Never Assessed Comments Unknown Sex and Gender Information Value Date Recorded Sex Assigned at Not on file 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
--- OUTSIDE RECORDS SUMMARY | 2025-02-04 08:55 | XMS_ITS | Encounter Summary ---
Author Organization [facility] Address [address] [place] [address] Care Team Providers Care Procedures Nurse Name Role Phone Unavailable Primary Care Provider Unavailabl e Encounter Details Date Type Department Care Team (Latest Contact Info) Description 04/18/1998 Outpatient Historical [facility] Family Medicine- [address] [address] Willy Soto MD [address] [address] Cellulitis and abscess of leg, except foot (Primary Dx); Attention to dressings and sutures Social History Tobacco Use Types Packs/Day Years Used Date Smoking Tobacco: Never Assessed Comments Unknown Sex and Gender Information Value Date Recorded Sex Assigned at Not on file 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
--- OUTSIDE RECORDS SUMMARY | 2025-02-04 08:55 | XMS_ITS | Encounter Summary ---
Author Organization [facility] Address [address] [place] [address] Care Team Providers Care Tool And Machine Maintainer Name Role Phone Unavailable Primary Care Provider Unavailabl e Encounter Details Date Type Department Care Team (Latest Contact Info) Description 05/25/2001 Outpatient Historical [facility] Medicine- [address] [address] Fortino Mora MD [address] [place] [address] DIABETES UNCOMPL ADULT-TYPE II (CMS/HCC) (Primary Dx); NONINFEC GASTROENTERIT NEC; UNSPECIFIED VIRAL INFECTION; HEMATURIA Social History Tobacco Use Types Packs/Day Years Used Date Smoking Tobacco: Never Assessed Comments Unknown Sex and Gender Information Value Date Recorded Sex Assigned at Not on file 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
--- OUTSIDE RECORDS SUMMARY | 2025-02-04 08:55 | XMS_ITS | Encounter Summary ---
Author Organization [facility] Address [address] [place] [address] Care Team Providers Care Administrative Personal Assistant Name Role Phone Unavailable Primary Care Provider Unavailabl e Encounter Details Date Type Department Care Team (Latest Contact Info) Description 06/17/1998 Outpatient Historical [facility] Family Medicine- [address] [address] Willy Soto MD [address] [phone] Dysthymic disorder (Primary Dx) Social History Tobacco Use Types Packs/Day Years Used Date Smoking Tobacco: Never Assessed Comments Unknown Sex and Gender Information Value Date Recorded Sex Assigned at Not on file Legal 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
--- OUTSIDE RECORDS SUMMARY | 2025-02-04 08:55 | XMS_ITS | Encounter Summary ---
Author Organization [facility] Address [address] [place] [address] Care Team Providers Care Visual Coordinator Name Role Phone Unavailable Primary Care Provider Unavailabl e Encounter Details Date Type Department Care Team (Latest Contact Info) Description 04/14/1998 Outpatient Historical [facility] Family Medicine- [address] [address] Willy Soto MD [address] [address] Type II or unspecified type diabetes mellitus without mention of complication, not stated as uncontrolled (Primary Dx) Social History Tobacco Use Types Packs/Day Years Used Date Smoking Tobacco: Never Assessed Comments Unknown Sex and Gender Information Value Date Recorded Sex Assigned at Not on file 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
--- OUTSIDE RECORDS SUMMARY | 2025-02-04 08:55 | XMS_ITS | Encounter Summary ---
Author Organization [facility] Address [address] [place] [address] Care Team Providers Care Teletype Or Varitype Keyboard Operator Name Role Phone Jackson Mora DO Primary Care Provider [phone] Reason for Visit * Reason Onset Date Comments Medication Refill 01/31/2025 Encounter Details Date Type Department Care Team (Late st Contact Info) Description 01/31/[address] [phone] Jackson Mora DO [address] [place] [phone] Age-related osteoporosis without current pathological fracture (Primary Dx) Social History Tobacco Use Types Packs/Day Years Used Date Smoking Tobacco: Former Cigarettes Passive Smoke Exposure: Past Smokeless Tobacco: Never Alcohol Use Standard Drinks/Week Comments Not Currently 0 (1 standard drink = 0.6 oz pur e alcohol) Comments No Sex and Gender Information Value Date Recorded Sex Assigned at Not on file Legal Sex Female 6:34 AM GRADES 1 6 TUTOR Gender Identity Not on file Sexual Orientation Not on file documented as of this encounter Miscellaneous Notes * Telephone Encounter - Trinity Hernández LPN - 01/31/2025 2:22 PM CDT Medication Refill Request Last Fill Date: x 1 refill Recent and Future Visits: Recent Visits Date Type Provider Dept 12/27/24 Office Visit Jackson Mora DO [facility] 09/24/24 Office Visit Jackson Mora DO [facility] 12/02/23 Office Visit Jackson Mora DO [facility] 09/02/23 Office Visit Jackson Mora DO [facility] Showing recent visits within past 540 days with a meds authorizing provider and meeting all other requirements Future Appointments Date Type Provider Dept 03/28/25 Appointment Danita Vides FNP [facility] Showing future appointments within next 365 days with a meds authorizing provider and meeting all other requirements documented in this encounter Plan of Treatment Upcoming Encounters Date Type Department Care Team (Late st Contact Info) Description 03/28/2025 9:40 AM CDT Office Visit [facility] [address] [place] [phone] Danita Vides FNP [address] [place] [phone] documented as of this encounter Visit Diagnoses Diagnosis Age-related osteoporosis without current pathological fracture- Primary Senile osteoporosis documented in this encounter Care Teams Teletype Or Varitype Keyboard Operator Relationship Specialty Start Date End Date Jackson Mora DO [address] [place] [address] [phone] PCP - General Family Practice 12/15/21 documented as of this encounter
--- OUTSIDE RECORDS SUMMARY | 2025-02-04 08:55 | XMS_ITS | Encounter Summary ---
Author Organization [facility] Address [address] [place] [address] Care Team Providers Care Field Support Technician Name Role Phone SnehaJackson cox Primary Care Provider Reason for Visit * Reason Comments Patient Communication Encounter Details Date Type Department Care Team (Late st Contact Info) Description 01/20/2025 Results Follow-Up [facility] [address] [place] [phone] Jackson Mora DO [address] [place] [phone] XR CHEST PA AND LATERAL 2 VW Social History Tobacco Use Types Packs/Day Years Used Date Smoking Tobacco: Former Cigarettes Passive Smoke Exposure: Past Smokeless Tobacco: Never Alcohol Use Standard Drinks/Week Comments Not Currently 0 (1 standard drink = 0.6 oz pur e alcohol) Comments No Sex and Gender Information Value Date Recorded Sex Assigned at Not on file 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 Topic: CPA Information Request >> Jan 21, 2025 12:40 PM Suyapa Schmidt wrote: Caller is returning phone call from clinic. Caller Name: pt Patient/Caregiver Callback Number: Telephone Information: Clinic Left Note In Chart Is there a note from the clinic requesting the caller be transferred when they call back? No Are the credentials of the caregiver who called the patient life science research assistant? Yes Call Notes: Communicated information that is documented in the note. Caller does not want a call back from clinic. * Result Encounter Note - Avani Lake LPN - 01/21/2025 12:33 PM CDT Unable to leave a VM with results. Will continue to try and reach the patient. documented in this encounter Plan of Treatment Upcoming Encounters Date Type Department Care Team (Late st Contact Info) Description 03/28/2025 9:40 AM CDT Office Visit [facility] [address] [place] [phone] Danita Vides FNP [address] [place] [phone] documented as of this encounter Visit Diagnoses Not on filedocumented in this encounter Care Teams Field Support Technician Relationship Specialty Start Date End Date Jackson Mora DO [address] [place] [phone] PCP - General Family Practice 12/15/21 documented as of this encounter
--- OUTSIDE RECORDS SUMMARY | 2025-02-04 08:55 | XMS_ITS | Encounter Summary ---
Author Organization [facility] Address [address] [place] [address] Care Team Providers Care Toll Testboard Worker Name Role Phone Unavailable Primary Care Provider Unavailabl e Encounter Details Date Type Department Care Team (Latest Contact Info) Description 04/28/2001 Outpatient Historical [facility] Family Medicine- [address] [phone] Gloria Rolon MD [address] [place] [address] PREOP EXAM OTHER UNSPECIFIED (Primary Dx); ASCVD Social History Tobacco Use Types Packs/Day Years Used Date Smoking Tobacco: Never Assessed Comments Unknown Sex and Gender Information Value Date Recorded Sex Assigned at Not on file 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
--- NOTE | 2025-02-04 09:04 | ED_ITS ---
HPI - Allergic Reaction 2 General: Chief complaint: Animal Bite Stated complaint: allergic reaction to wasp sting Time Seen by Provider: 02/04/25 08:55 Source: patient Mode of arrival: ambulatory Limitations: no limitations History of Present Illness: HPI narrative: Patient is in a 74-year-old female presents to ED today for evaluation of a wasp sting. Patient states just a few hours ago, she was sitting on her back porch drinking coffee when a wasp stung her to the left side of her chest wall/breast. Patient reports previous wasp stings to her legs and arms that resulted in a large amount of edema. She has never had anaphylactic like reactions and has never required epinephrine. She has no symptoms now apart from some burning to the site of the wasp sting. MD complaint: allergic reaction Onset (ago): hour(s) Exposure: other (wasp sting) Associated symptoms: Reports no associated symptoms; Deny abdominal pain, dizziness, hoarseness or vomiting Severity: mild Treatment prior to arrival: none Previous Allergic Reaction History: none Related Data Allergies Allergy/AdvReac Type Severity Reaction Status Date / Time bee pollen Allergy ADR-Itching Verified 02/04/25 09:05 venom-wasp Allergy ADR-Itching Verified 02/04/25 09:05 Review of Systems 2 Const: Denies: fever(s) ENMT: Denies: throat pain, odynophagia, hoarseness, swelling of lips/tongue or sinus pain Card: Denies: chest pain, palpitations, edema, swelling of feet/ankles, lightheadedness, syncope or pre-syncope Resp: Denies: dyspnea GI: Denies: abdominal pain, vomiting or diarrhea Skin/Breast: Reports: other (wasp sting) Neuro: Denies: headache(s) or dizziness PFSH ED 2 PFSH: Social History Smoking and tobacco/nicotine status: never used tobacco/nicotine Physical Exam 2 Const: COMMON NORMALS: no acute distress, average body habitus, no limitations, healthy appearing, alert and well nourished GENERAL APPEARANCE: cooperative ORIENTATION/CONSCIOUSNESS: Yes awake, Yes oriented to person, Yes oriented to place and Yes oriented to time HENMT: FACE & SINUS: normal facial exam MOUTH: Normal oral and palatal mucosa present, lip normal and tongue normal THROAT: posterior oropharynx normal Eye: GENERAL EYE: appearance normal, both eyes and all related structures Chest: Chest images (female): 1. small area of erythema with central punctate sting jameel Resp: COMMON NORMALS: normal respiratory effort and clear to auscultation bilaterally AUSCULTATION: clear to auscultation bilaterally Cardio: COMMON NORMALS: regular rate and regular rhythm RATE: regular rate RHYTHM: regular rhythm Extremity: GENERAL: Yes normal exam except as noted Neuro: FABIANA COMA SCALE: document GCS findings Fabiana coma scale eye opening: Spontaneous Napier coma scale verbal response: Orientated Napier coma scale motor response: Obey commands Fabiana coma scale total score: 15 COMMON NORMALS: moves all extremities, no focal motor deficits, no sensory deficits noted and gait normal SENSORIUM/ORIENTATION: Yes alert, Yes oriented to person, Yes oriented to place and Yes oriented to time Skin: NARRATIVE SKIN EXAM: see above Course 2 Vital Signs: Vital signs: Vital Signs Temperature 97.9 F 02/04/25 08:53 Pulse Rate 66 02/04/25 08:53 Respiratory Rate 16 02/04/25 08:53 Blood Pressure 142/86 02/04/25 08:53 Pulse Oximetry 98 02/04/25 08:53 Oxygen Delivery Me thod Room Air 02/04/25 08:53 MDM - Allergic Reaction Medical Decision Making Patient here for a wasp sting. She has no symptoms apart from some burning at the site. She has no previous anaphylactic reactions. She has had large localized reactions in the past. Treatment at this time would be conservative including cool or ice compresses and topical Benadryl/Hydrocortisone to help with itching. Return precautions discussed. Differential Diagnosis Likely anaphylaxis, allergic reaction, angioedema and contact dermatitis Medical Records I reviewed the patient's medical records. No radiology studies performed this visit Discharge Plan Discharge Patient Disposition: Home Clinical Impression: Accidental wasp sting Condition: Stable Discharge Orders: Discharge ED (Routine); Ordered 02/04/25 Ordered By: Maria Isabel Garrett Referrals: Jackson Mora DO [Primary Care Provider] Patient Instructions: Insect Bite or Sting (ED), Patient Portal & [facility] Instructions Activity Restrictions/Additional Instructions: As we discussed, I would apply cold/ice compresses for 20 to 30 minutes every other hour to area to help with swelling. You may use topical Benadryl (Diphenhydramine is the generic) and topical Hydrocortisone cream to help with itching. Print Language: Sami Coding Level of Care Code ED Wood Heel Back Liner for Gabriella Plaza
[2025-02-04 09:38] VITALS: BP 138/71; PULSE 64; O2SAT 98
== END 2025-02-04 09:39 | disposition home or self-care (01) ==
PROVIDERS: Emergency Provider Physician Assistant; PCP Family Medicine
DX: T63.461A Toxic effect of venom of wasps, accidental (unintentional), initial encounter (principal); X58.XXXA Exposure to other specified factors, initial encounter
CPT/HCPCS: 99282